=== PATIENT | female | born 1940 | race Caucasian/White ===

== ENCOUNTER 2017-12-28 07:20 | Inpatient (IN) | payer MEDICARE, OTHER ==
[2017-12-28] VITALS (14 sets, daily range): BP systolic 125–166; BP diastolic 66–78
[~2017-12-28] VITALS: Ht 162.6 cm; Wt 62.7 kg
[~2017-12-28 07:20] MED LIST: ADV50250 IH; CETI10CA PO; LISI30TA4 PO; OMEP20CA10 PO; SIMV20TA5 PO; SYN0.112T PO
[2017-12-28 08:26] LABS: INR 0.9 INR; PARTIAL THROMBOPLASTIN TIME 29 SECONDS (22-32); PROTHROMBIN TIME 9.8 SECONDS (9.0-12.0)
[2017-12-28 08:29] LABS: BASOPHILS % (AUTO) 0.2 % (0-1); EOSINOPHILS # (AUTO) 0.1 X10'3 (0-0.9); EOSINOPHILS % (AUTO) 1.5 % (0-6); HEMATOCRIT 39.1 % (35.0-45.0); HEMOGLOBIN 13.4 g/dl (12.0-16.0); LYMPHOCYTES # (AUTO) 1.8 X10'3 (1.1-4.8); LYMPHOCYTES % (AUTO) 29.8 % (21-51); MEAN CORPUSCULAR HEMOGLOBIN 33.7 PG (27.0-31.0); MEAN CORPUSCULAR HGB CONC 34.2 % (33.0-36.5); MEAN CORPUSCULAR VOLUME 98.6 FL (78-98); MEAN PLATELET VOLUME 9.4 FL (7.4-10.4); MONOCYTES # (AUTO) 0.7 X10'3 (0-0.9); MONOCYTES % (AUTO) 11.4 % (2-12); NEUTROPHILS # (AUTO) 3.5 X10'3 (1.8-7.7); NEUTROPHILS % (AUTO) 57.1 % (42-75); PLATELET COUNT 252 X10'3 (140-440); RED BLOOD COUNT 3.96 X10'6 (4.20-5.60); RED CELL DISTRIBUTION WIDTH 13.7 % (11.5-14.5); WHITE BLOOD COUNT 6.1 X10'3 (4.5-11.0)
[2017-12-28 08:34] LABS: ALANINE AMINOTRANSFERASE 15 U/L (12-78); ALBUMIN 3.4 G/DL (3.4-5.0); ALBUMIN/GLOBULIN RATIO 1.1 (1.1-1.5); ALKALINE PHOSPHATASE 113 IU/L (46-116); ANION GAP 4 (8-16); ASPARTATE AMINO TRANSFERASE 15 U/L (10-37); BILIRUBIN,TOTAL 0.5 MG/DL (0.1-1.0); BLOOD UREA NITROGEN 6 MG/DL (7-18); CALCIUM 8.8 MG/DL (8.5-10.1); CHLORIDE 93 MMOL/L (99-107); GLUCOSE 105 MG/DL (70-104); POTASSIUM 4.2 MMOL/L (3.5-5.1); SODIUM 128 MMOL/L (135-145); TOTAL CARBON DIOXIDE 31.2 MMOL/L (24-32); TOTAL PROTEIN 6.4 G/DL (6.4-8.2); eGFR > 90 ML/MIN
[2017-12-28] MEDS ORDERED: SIMV20TA5 PO (08:43)
[2017-12-28] MEDS ORDERED: LEVO75TA PO (08:46)
[2017-12-28] MEDS ORDERED: potassium Cl 20 mEq SR tablet PO PRN ×2 (08:55)
[2017-12-28] MEDS ORDERED: magnesium Cl slow-release 64mg tablet PO PRN (08:55)
[2017-12-28] MEDS ORDERED: potassium Cl 40MEQ/NS 500ml 500 ML IV PRN ×2 (08:55)
[2017-12-28] MEDS ORDERED: mag hydrox/Alum hydrox/simeth 30ml oral suspension PO PRN (08:55)
[2017-12-28] MEDS ORDERED: acetaminophen 325mg tablet PO PRN (08:55)
[2017-12-28] MEDS ORDERED: magnesium 1gm/100ml D5W IVPB 100 ML IV PRN (08:55)
[2017-12-28] MEDS ORDERED: ondansetron/PF 4mg/2ml inj IV PRN (08:55)
[2017-12-28] MEDS ORDERED: magnesium hydroxide 30ml (MOM) UD suspension PO PRN (08:55)
[2017-12-28] MEDS ORDERED: magnesium 4gm in 100ml NS 100 ML IV PRN (08:55)
[2017-12-28] MEDS: levoTHYROXINE 75mcg tablet PO SCH (09:00)
[2017-12-28] MEDS ORDERED: metoprolol tartrate 1mg/ml inj IV PRN (09:00)
[2017-12-28] MEDS ORDERED: nitroGLYCERIN 0.4mg SUBLingual tab SL PRN (09:00)
[2017-12-28] MEDS ORDERED: CAFFEINE CITRATE 60 MG/3 ML injection vial IV PRN (09:00)
[2017-12-28] MEDS ORDERED: regadenoson 0.4mg/5ml syringe IV PRN (09:00)
[2017-12-28] MEDS: normal saline 1000ml 1,000 ML IV SCH (09:10)
[2017-12-28] MEDS ORDERED: albuterol 2.5 MG/3 ML nebule NEB PRN (09:15)
[2017-12-28] MEDS: lisinopril 10 MG tablet PO SCH (10:00)
[2017-12-28] MEDS: pantoprazole 40mg Tablet.DR PO SCH (10:25)
[2017-12-28] MEDS ORDERED: regadenoson 0.4mg/5ml syringe IV ONE (13:05)
[2017-12-28] MEDS ORDERED: CAFFEINE CITRATE 60 MG/3 ML injection vial IV ONE (13:05)
[2017-12-28] MEDS: cetirizine 10mg tablet PO SCH (14:30)
[2017-12-28] MEDS: metoprolol tartrate 12.5mg (1/2 tablet) PO SCH (19:42)
[2017-12-28] MEDS: heparin, porcine 5000 units/ml vial SQ SCH (19:43)
[2017-12-28] MEDS ORDERED: non-formulary drug (Fluticasone/Salmeterol* (Advair 250-50 Diskus*) 1 PUFF) IH SCH (20:00)
[2017-12-28] MEDS ORDERED: HYDROcodone/acetaminophen 5mg/325mg tablet PO PRN (20:00)
[2017-12-28] MEDS ORDERED: temazepam 15mg capsule PO PRN (20:00)
[2017-12-28] MEDS ORDERED: morphine 2 MG/ML inj. syringe IV PRN (20:00)
[2017-12-28] MEDS: budesonide 0.5mg/2ml UD nebule IH SCH (22:10)
[2017-12-29 03:00] VITALS: BP 126/67
[2017-12-29 04:50] LABS: BASOPHILS % (AUTO) 0.4 % (0-1); EOSINOPHILS # (AUTO) 0.1 X10'3 (0-0.9); EOSINOPHILS % (AUTO) 2.1 % (0-6); HEMATOCRIT 39.4 % (35.0-45.0); HEMOGLOBIN 13.4 g/dl (12.0-16.0); LYMPHOCYTES # (AUTO) 1.8 X10'3 (1.1-4.8); LYMPHOCYTES % (AUTO) 29.8 % (21-51); MEAN CORPUSCULAR HEMOGLOBIN 33.4 PG (27.0-31.0); MEAN CORPUSCULAR VOLUME 98.5 FL (78-98); MONOCYTES # (AUTO) 0.5 X10'3 (0-0.9); MONOCYTES % (AUTO) 8.4 % (2-12); NEUTROPHILS # (AUTO) 3.5 X10'3 (1.8-7.7); NEUTROPHILS % (AUTO) 59.3 % (42-75); PLATELET COUNT 251 X10'3 (140-440); RED CELL DISTRIBUTION WIDTH 13.7 % (11.5-14.5)
[2017-12-29 05:11] LABS: ALANINE AMINOTRANSFERASE 16 U/L (12-78); ALBUMIN 3.3 G/DL (3.4-5.0); ALBUMIN/GLOBULIN RATIO 1.1 (1.1-1.5); ALKALINE PHOSPHATASE 102 IU/L (46-116); ANION GAP 3 (8-16); ASPARTATE AMINO TRANSFERASE 16 U/L (10-37); BILIRUBIN,TOTAL 0.7 MG/DL (0.1-1.0); BLOOD UREA NITROGEN 6 MG/DL (7-18); BUN/CREATININE RATIO 9.8 (6.6-38.0); CHLORIDE 96 MMOL/L (99-107); CREATININE 0.61 MG/DL (0.40-0.90); GLUCOSE 92 MG/DL (70-104); MAGNESIUM 1.6 MG/DL (1.5-2.4); POTASSIUM 4.2 MMOL/L (3.5-5.1); SODIUM 132 MMOL/L (135-145); TOTAL PROTEIN 6.2 G/DL (6.4-8.2); eGFR > 90 ML/MIN
[2017-12-29] MEDS: normal saline 1000ml 1,000 ML IV SCH (05:14)
[2017-12-29 06:00] VITALS: BP 143/77
[2017-12-29] MEDS: budesonide 0.5mg/2ml UD nebule IH SCH (07:19)
[2017-12-29] MEDS ORDERED: atorvastatin 10mg tablet PO SCH (08:00)
[2017-12-29] MEDS ORDERED: K and/or MAG REPLACEMENT MC SCH (08:00)
[2017-12-29] MEDS ORDERED: aspirin 81mg tab.chew PO SCH (08:30)
[2017-12-29] MEDS: metoprolol tartrate 12.5mg (1/2 tablet) PO SCH (08:46)
[2017-12-29] MEDS: levoTHYROXINE 75mcg tablet PO SCH (08:47)
[2017-12-29] MEDS: cetirizine 10mg tablet PO SCH (08:47)
[2017-12-29] MEDS: lisinopril 10 MG tablet PO SCH (08:49)
[2017-12-29] MEDS: pantoprazole 40mg Tablet.DR PO SCH (08:49)
[2017-12-29] MEDS: heparin, porcine 5000 units/ml vial SQ SCH (08:50)
[2017-12-29 11:00] VITALS: BP 132/74
[2017-12-29] MEDS ORDERED: ALBU8HFA PO (12:48)
== END 2017-12-29 14:45 | disposition home or self-care (01) | DRG 313 ==
LOC: ER 07:20 → ED HOLD 08:54 → PCU 3S 10:45
PROVIDERS: ADMIT Internal Medicine; ATTEND Internal Medicine
PROC: 4A02XM4 Measurement of Cardiac Total Activity, External Approach (ICD-10-PCS; principal; 2017-12-28)
PROC: 3E033HZ Introduction of Radioactive Substance into Peripheral Vein, Percutaneous Approach (ICD-10-PCS; 2017-12-28)
DX: R07.9 Chest pain, unspecified (principal); J42 Unspecified chronic bronchitis; K21.9 Gastro-esophageal reflux disease without esophagitis; E03.9 Hypothyroidism, unspecified; E78.00 Pure hypercholesterolemia, unspecified; I10 Essential (primary) hypertension; F17.200 Nicotine dependence, unspecified, uncomplicated; F12.90 Cannabis use, unspecified, uncomplicated; Z79.899 Other long term (current) drug therapy; Z82.49 Family history of ischemic heart disease and other diseases of the circulatory system; Z83.3 Family history of diabetes mellitus; Z98.51 Tubal ligation status
CPT/HCPCS: 36415; 71045; 78452; 80053; 83735; 84443; 84484; 85025; 85610; 85730; 87070; 93005; 93017; 93306; 94640; 99285; A6258; A9500; J1644; J2270; J7030; J7626

== ENCOUNTER 2018-06-27 15:43 | Inpatient (IN) | payer MEDICARE, OTHER | END 2018-07-02 13:35 | disposition home or self-care (01) | LOC: ER 15:43 → ED HOLD 18:40 → SUR 3N 06-28 20:20 → PCU 3S 22:00 | DX: A41.9 Sepsis, unspecified organism (principal); J18.9 Pneumonia, unspecified organism; J44.1 Chronic obstructive pulmonary disease with (acute) exacerbation; E87.1 Hypo-osmolality and hyponatremia; J44.0 Chronic obstructive pulmonary disease with (acute) lower respiratory infection; Z72.0 Tobacco use; K21.9 Gastro-esophageal reflux disease without esophagitis ==

== ENCOUNTER 2021-12-23 06:50 | Emergency (ER) | payer MEDICARE, OTHER ==
[~2021-12-23] VITALS: Ht 162.6 cm; Wt 79.1 kg
[~2021-12-23 06:50] MED LIST changes: -ADV50250 IH; +ALBU8HFA PO; -CETI10CA PO; +GLYC10.7 IH; +IPRA3AMP31 NEB; +LEVO75TA PO; +MULT-1085 PO; -OMEP20CA10 PO; +OMEP20CA15 PO; -SIMV20TA5 PO; -SYN0.112T PO; +THIA50TA10 PO; +UMEC62.5 IH
--- NOTE | 2021-12-23 07:06 | NUR ---
PT STATES SHE USES HOME O2 AT NIGHT. HAS RECENTLY STARTED USING IT DURING THE DAY. HAD COVID IN OCTOBER.
[2021-12-23 08:02] VITALS: BP 131/69
== END 2021-12-23 08:30 | disposition home or self-care (01) ==
LOC: ER 06:50
DX: R00.0 Tachycardia, unspecified (principal); F41.1 Generalized anxiety disorder; I10 Essential (primary) hypertension; J44.9 Chronic obstructive pulmonary disease, unspecified; E07.9 Disorder of thyroid, unspecified; F12.10 Cannabis abuse, uncomplicated; Z88.8 Allergy status to other drugs, medicaments and biological substances; Z79.899 Other long term (current) drug therapy
CPT/HCPCS: 71045; 93005; 99284

== ENCOUNTER 2023-09-20 06:14 | Inpatient (IN) | payer MEDICARE, OTHER ==
[~2023-09-20] VITALS: Ht 160 cm; Wt 73.1 kg
[2023-09-20] VITALS (16 sets, daily range): BP systolic 99–185; BP diastolic 50–105; PULSE 84–118; RESP 15–25; TEMP 97.1–97.8; O2SAT 92–97
[~2023-09-20 06:14] MED LIST changes: +BUDE10.2 IH; +CALC500T11 PO; +ESTR42.53 VG; -GLYC10.7 IH; +LISI20TA28 PO; -LISI30TA4 PO; -MULT-1085 PO; +NOR5T PO; -OMEP20CA15 PO; +PRE5T PO; -THIA50TA10 PO; -UMEC62.5 IH
[2023-09-20 07:08] LABS: BILIRUBIN,URINE NEGATIVE (Neg); CLARITY,URINE SLIGHTLY CLOUDY (Clear); COLOR,URINE YELLOW (Yellow); GLUCOSE, URINE NEGATIVE (Neg); KETONES,URINE >=80 mg/dl (Neg); LEUKOCYTE ESTERASE ,URINE NEGATIVE (Neg); NITRITES, URINE NEGATIVE (Neg); OCCULT BLOOD,URINE TRACE-INTACT (Neg); PROTEIN,URINE NEGATIVE (Neg); UROBILINOGEN,URINE 0.2 E.U/dL (0.2-1.0)
[2023-09-20 07:10] LABS: BASOPHILS % (AUTO) 0.1 % (0-1); EOSINOPHILS % (AUTO) 0.3 % (0-6); HEMATOCRIT 38.4 % (35.0-45.0); HEMOGLOBIN 12.8 g/dl (12.0-16.0); LYMPHOCYTES # (AUTO) 1.1 X10'3 (1.1-4.8); LYMPHOCYTES % (AUTO) 8.2 % (21-51); MEAN CORPUSCULAR HEMOGLOBIN 30.9 PG (27.0-31.0); MEAN CORPUSCULAR HGB CONC 33.4 g/dL (33.0-36.5); MEAN CORPUSCULAR VOLUME 92.6 FL (78-98); MEAN PLATELET VOLUME 10.2 FL (7.4-10.4); MONOCYTES # (AUTO) 0.7 X10'3 (0-0.9); MONOCYTES % (AUTO) 5.1 % (2-12); NEUTROPHILS # (AUTO) 11.1 X10'3 (1.8-7.7); NEUTROPHILS % (AUTO) 86.3 % (42-75); PLATELET COUNT 206 X10'3 (140-440); RED BLOOD COUNT 4.14 X10'6 (4.20-5.60); RED CELL DISTRIBUTION WIDTH 13.4 % (11.5-14.5); WHITE BLOOD COUNT 12.9 X10'3 (4.5-11.0)
[2023-09-20 07:15] LABS: UA COLLECTION TYPE STRAIGHT CATH
[2023-09-20] MEDS: lisinopril 10 MG tablet PO ONE (07:15)
[2023-09-20 07:18] LABS: SQUAMOUS EPITHELIAL CELL,UR MODERATE /LPF (FEW)
[2023-09-20 07:19] LABS: BACTERIA,URINE FEW /HPF (Neg); RBC,URINE 0-2 /HPF (0-2); WBC,URINE 0-4 /HPF (0-4)
[2023-09-20 07:22] LABS: TRANSITIONAL EPI CELLS,URINE FEW /HPF
[2023-09-20] MEDS: ipratropium/albuterol 3ml nebule NEB ONE (07:24)
[2023-09-20] MEDS: ondansetron/PF 4mg/2ml inj IV STA (08:01)
[2023-09-20] MEDS: CefTRIAXone/D5W-Rocephin 1gm 50 ML IV ONE (08:48)
[2023-09-20] MEDS: methylPREDNISolone sod succ 125mg/2ml vial IV ONE ×2 (08:50→09:50)
[2023-09-20] MEDS: metoprolol tartrate 50mg tablet PO ONE (08:54)
[2023-09-20] MEDS ORDERED: acetaminophen 325mg tablet PO PRN (09:00)
[2023-09-20] MEDS ORDERED: magnesium 4gm in 100ml NS 100 ML IV PRN (09:00)
[2023-09-20] MEDS ORDERED: magnesium hydroxide 30ml (MOM) UD suspension PO PRN (09:00)
[2023-09-20] MEDS ORDERED: potassium Cl 40MEQ/1/2NS 520ml 520 ML IV PRN (09:00)
[2023-09-20] MEDS ORDERED: potassium Cl 20 mEq SR tablet PO PRN ×2 (09:00)
[2023-09-20 09:36] LABS: ALBUMIN 3.2 G/DL (3.4-5.0); ANION GAP 7 (8-16); BLOOD UREA NITROGEN 5 MG/DL (7-18); BUN/CREATININE RATIO 8.5 (10.0-20.0); CALCIUM 8.7 MG/DL (8.5-10.1); CHLORIDE 84 MMOL/L (99-107); CREATININE 0.59 MG/DL (0.40-0.90); GLUCOSE 100 MG/DL (70-104); POTASSIUM 4.2 MMOL/L (3.5-5.1); SODIUM 122 MMOL/L (135-145); eCRCL 62 ML/MIN; eGFR > 90 ML/MIN
[2023-09-20] MEDS ORDERED: albuterol 2.5 MG/3 ML nebule NEB PRN (09:50)
[2023-09-20 09:59] LABS: HEMOGLOBIN A1C 5.4 % (4.5-6.2)
[2023-09-20] MEDS: lisinopril 20mg tablet PO SCH (10:00)
[2023-09-20] MEDS: azithromycin 250mg tablet PO SCH (10:01)
[2023-09-20] MEDS: budesonide 0.5mg/2ml UD nebule IH SCH (10:30)
[2023-09-20] MEDS: ipratropium/albuterol 3ml nebule NEB SCH (10:30)
[2023-09-20 11:16] LABS: D-DIMER 2.86 MG/L FEU (0-0.50)
[2023-09-20 11:36] LABS: ALANINE AMINOTRANSFERASE 19 U/L (12-78); ALBUMIN 3.3 G/DL (3.4-5.0); ALBUMIN/GLOBULIN RATIO 0.9 (1.1-1.5); ALKALINE PHOSPHATASE 102 IU/L (46-116); ANION GAP 8 (8-16); ASPARTATE AMINO TRANSFERASE 24 U/L (10-37); BILIRUBIN,TOTAL 0.6 MG/DL (0.1-1.0); BLOOD UREA NITROGEN 5 MG/DL (7-18); BUN/CREATININE RATIO 9.6 (10.0-20.0); CALCIUM 8.7 MG/DL (8.5-10.1); CHLORIDE 83 MMOL/L (99-107); CREATININE 0.52 MG/DL (0.40-0.90); GLUCOSE 102 MG/DL (70-104); POTASSIUM 4.7 MMOL/L (3.5-5.1); TOTAL CARBON DIOXIDE 28.8 MMOL/L (24-32); TOTAL PROTEIN 6.9 G/DL (6.4-8.2); eCRCL 70 ML/MIN; eGFR > 90 ML/MIN
[2023-09-20 11:39] LABS: SODIUM 120 MMOL/L (135-145)
[2023-09-20] MEDS ORDERED: iohexol 350MG/ML 100ml bottle IV ONE (12:40)
[2023-09-20] MEDS: furosemide 10 MG/1 ML 10ml inj IV ONE (13:18)
[2023-09-20] MEDS: mag hydrox/Alum hydrox/simeth 30ml oral suspension PO PRN (19:17)
[2023-09-20] MEDS: lactobacillus rhamnosus 10,000 MMU CELLS/CAPSULE PO SCH (19:19)
[2023-09-20] MEDS: heparin, porcine 5000 units/ml vial SQ SCH (19:19)
[2023-09-20] MEDS: docusate sod 100mg capsule PO SCH (19:20)
[2023-09-20] MEDS: ondansetron/PF 4mg/2ml inj IV PRN (19:42)
[2023-09-20] MEDS: K and/or MAG REPLACEMENT MC SCH (20:00)
[2023-09-21] VITALS (20 sets, daily range): BP systolic 99–118; BP diastolic 42–63; PULSE 83–121; RESP 11–27; TEMP 96.8–98.6; O2SAT 3–99
[2023-09-21 06:38] LABS: BASOPHILS % (AUTO) 0.1 % (0-1); EOSINOPHILS % (AUTO) 0 % (0-6); HEMATOCRIT 35.6 % (35.0-45.0); LYMPHOCYTES # (AUTO) 1.2 X10'3 (1.1-4.8); LYMPHOCYTES % (AUTO) 20.1 % (21-51); MEAN CORPUSCULAR HEMOGLOBIN 30.8 PG (27.0-31.0); MEAN CORPUSCULAR HGB CONC 33.7 g/dL (33.0-36.5); MEAN CORPUSCULAR VOLUME 91.6 FL (78-98); MEAN PLATELET VOLUME 9.8 FL (7.4-10.4); MONOCYTES # (AUTO) 0.7 X10'3 (0-0.9); MONOCYTES % (AUTO) 11.8 % (2-12); NEUTROPHILS # (AUTO) 4.1 X10'3 (1.8-7.7); PLATELET COUNT 214 X10'3 (140-440); RED BLOOD COUNT 3.88 X10'6 (4.20-5.60); RED CELL DISTRIBUTION WIDTH 13.6 % (11.5-14.5); WHITE BLOOD COUNT 6.1 X10'3 (4.5-11.0)
[2023-09-21 06:55] LABS: ALANINE AMINOTRANSFERASE 16 U/L (12-78); ALBUMIN 2.8 G/DL (3.4-5.0); ALBUMIN/GLOBULIN RATIO 0.9 (1.1-1.5); ALKALINE PHOSPHATASE 77 IU/L (46-116); ANION GAP 9 (8-16); ASPARTATE AMINO TRANSFERASE 23 U/L (10-37); BILIRUBIN,TOTAL 0.3 MG/DL (0.1-1.0); BLOOD UREA NITROGEN 16 MG/DL (7-18); BUN/CREATININE RATIO 15.4 (10.0-20.0); CALCIUM 8.3 MG/DL (8.5-10.1); CHLORIDE 82 MMOL/L (99-107); CHOL/HDL RATIO 3.1 (0.00-4.99); CHOLESTEROL 187 MG/DL (0-200); CREATININE 1.04 MG/DL (0.40-0.90); GLUCOSE 91 MG/DL (70-104); HDL CHOLESTEROL 61 MG/DL (35-60); LDL CHOLESTEROL 96 MG/DL (50-100); MAGNESIUM 1.3 MG/DL (1.5-2.4); POTASSIUM 4.1 MMOL/L (3.5-5.1); SODIUM 121 MMOL/L (135-145); TOTAL CARBON DIOXIDE 30.3 MMOL/L (24-32); TRIGLYCERIDES 66 MG/DL (20-135); eCRCL 35 ML/MIN; eGFR 51 ML/MIN
[2023-09-21] MEDS: levoTHYROXINE 75mcg tablet PO SCH (07:32)
[2023-09-21] MEDS ORDERED: normal saline 1000ml 1,000 ML IV SCH (08:20)
[2023-09-21] MEDS: predniSONE 20 mg tablet PO SCH (08:50)
[2023-09-21] MEDS: pantoprazole 40mg Tablet.DR PO SCH (08:51)
[2023-09-21] MEDS: CefTRIAXone/D5W-Rocephin 1gm 50 ML IV SCH (08:52)
[2023-09-21] MEDS: levalbuterol 0.63mg/3ml nebule IH SCH (09:00)
[2023-09-21] MEDS: amLODIPine 5mg tablet PO ONE (09:11)
[2023-09-21] MEDS: hydrALAZINE 20mg/ml inj. IV ONE (09:11)
[2023-09-21] MEDS: magnesium Cl slow-release 64mg tablet PO PRN (09:19)
[2023-09-21] MEDS: loratadine 10mg tablet PO SCH (09:19)
[2023-09-21] MEDS: furosemide 20 MG/2 ML vial IV SCH (09:20)
[2023-09-21 10:03] LABS: PRO BRAIN NATRIURETIC PEPTIDE 706 PG/ML (0-450)
[2023-09-21] MEDS: sodium chloride 1gm tablet PO SCH (13:41)
[2023-09-21] MEDS: magnesium 2GM in 50ml NS 50 ML IV PRN (13:42)
[2023-09-21] MEDS: Melatonin 3mg tablet PO SCH (23:46)
[2023-09-22] VITALS (15 sets, daily range): BP systolic 100–123; BP diastolic 58–67; PULSE 76–112; RESP 16–20; TEMP 97.2–97.9; O2SAT 85–98
[2023-09-22 07:22] LABS: BASOPHILS % (AUTO) 0.2 % (0-1); EOSINOPHILS % (AUTO) 0.2 % (0-6); HEMATOCRIT 35.9 % (35.0-45.0); HEMOGLOBIN 11.9 g/dl (12.0-16.0); LYMPHOCYTES # (AUTO) 1.3 X10'3 (1.1-4.8); LYMPHOCYTES % (AUTO) 21.6 % (21-51); MEAN CORPUSCULAR HEMOGLOBIN 30.5 PG (27.0-31.0); MEAN CORPUSCULAR HGB CONC 33.1 g/dL (33.0-36.5); MEAN CORPUSCULAR VOLUME 92.1 FL (78-98); MEAN PLATELET VOLUME 10.1 FL (7.4-10.4); MONOCYTES # (AUTO) 0.7 X10'3 (0-0.9); MONOCYTES % (AUTO) 12.4 % (2-12); NEUTROPHILS # (AUTO) 3.8 X10'3 (1.8-7.7); NEUTROPHILS % (AUTO) 65.6 % (42-75); PLATELET COUNT 210 X10'3 (140-440); RED CELL DISTRIBUTION WIDTH 13.6 % (11.5-14.5); WHITE BLOOD COUNT 5.8 X10'3 (4.5-11.0)
[2023-09-22 07:51] LABS: ALANINE AMINOTRANSFERASE 14 U/L (12-78); ALBUMIN 2.8 G/DL (3.4-5.0); ALBUMIN/GLOBULIN RATIO 0.9 (1.1-1.5); ALKALINE PHOSPHATASE 67 IU/L (46-116); ANION GAP 0 (8-16); ASPARTATE AMINO TRANSFERASE 17 U/L (10-37); BILIRUBIN,TOTAL 0.4 MG/DL (0.1-1.0); BLOOD UREA NITROGEN 17 MG/DL (7-18); BUN/CREATININE RATIO 23.3 (10.0-20.0); CALCIUM 8.7 MG/DL (8.5-10.1); CHLORIDE 88 MMOL/L (99-107); CREATININE 0.73 MG/DL (0.40-0.90); GLUCOSE 89 MG/DL (70-104); MAGNESIUM 2.1 MG/DL (1.5-2.4); PHOSPHORUS 2.7 MG/DL (2.3-4.5); POTASSIUM 3.7 MMOL/L (3.5-5.1); SODIUM 126 MMOL/L (135-145); THYROID STIMULATING HORMONE 1.44 ulU/ml (0.34-4.50); TOTAL CARBON DIOXIDE 38.3 MMOL/L (24-32); eCRCL 50 ML/MIN; eGFR 77 ML/MIN
[2023-09-22 14:39] LABS: SODIUM,URINE RANDOM 20 MEQ/L
[2023-09-22 15:03] LABS: OSMOLALITY UA 182 MOSM/K (50-1400)
[2023-09-22] MEDS: sodium chloride 1gm tablet PO SCH (16:13)
[2023-09-23 06:39] VITALS: BP 143/84; PULSE 100; RESP 16; TEMP 97.7; O2SAT 98
[2023-09-23 08:28] LABS: BASOPHILS % (AUTO) 0.2 % (0-1); EOSINOPHILS % (AUTO) 0.5 % (0-6); HEMATOCRIT 37.5 % (35.0-45.0); HEMOGLOBIN 12.3 g/dl (12.0-16.0); LYMPHOCYTES # (AUTO) 1.8 X10'3 (1.1-4.8); LYMPHOCYTES % (AUTO) 28.7 % (21-51); MEAN CORPUSCULAR HEMOGLOBIN 30.6 PG (27.0-31.0); MEAN CORPUSCULAR HGB CONC 32.8 g/dL (33.0-36.5); MEAN CORPUSCULAR VOLUME 93.3 FL (78-98); MEAN PLATELET VOLUME 9.9 FL (7.4-10.4); MONOCYTES # (AUTO) 0.8 X10'3 (0-0.9); MONOCYTES % (AUTO) 13.2 % (2-12); NEUTROPHILS # (AUTO) 3.5 X10'3 (1.8-7.7); NEUTROPHILS % (AUTO) 57.4 % (42-75); PLATELET COUNT 210 X10'3 (140-440); RED BLOOD COUNT 4.02 X10'6 (4.20-5.60); RED CELL DISTRIBUTION WIDTH 13.9 % (11.5-14.5); WHITE BLOOD COUNT 6.2 X10'3 (4.5-11.0)
[2023-09-23 08:31] VITALS: PULSE 81; RESP 18; O2SAT 93
[2023-09-23 08:43] VITALS: PULSE 82; RESP 18
[2023-09-23 08:49] LABS: ALANINE AMINOTRANSFERASE 13 U/L (12-78); ALBUMIN 2.9 G/DL (3.4-5.0); ALBUMIN/GLOBULIN RATIO 0.9 (1.1-1.5); ALKALINE PHOSPHATASE 66 IU/L (46-116); ANION GAP 0 (8-16); ASPARTATE AMINO TRANSFERASE 13 U/L (10-37); BILIRUBIN,TOTAL 0.4 MG/DL (0.1-1.0); BLOOD UREA NITROGEN 15 MG/DL (7-18); CALCIUM 8.7 MG/DL (8.5-10.1); CHLORIDE 92 MMOL/L (99-107); GLUCOSE 82 MG/DL (70-104); PHOSPHORUS 2.3 MG/DL (2.3-4.5); SODIUM 132 MMOL/L (135-145); TOTAL CARBON DIOXIDE 39.9 MMOL/L (24-32); TOTAL PROTEIN 6.1 G/DL (6.4-8.2); eCRCL 61 ML/MIN; eGFR > 90 ML/MIN
[2023-09-23 10:00] VITALS: BP 113/43; PULSE 105; RESP 18; TEMP 97; O2SAT 97
== END 2023-09-23 14:15 | DRG 643 ==
LOC: ER 06:14 → ED HOLD 09:01 → ORTHO 4S 14:01
PROVIDERS: ADMIT Family Medicine; ATTEND Family Medicine
PROC: B32T1ZZ Computerized Tomography (CT Scan) of Left Pulmonary Artery using Low Osmolar Contrast (ICD-10-PCS; principal; 2023-09-20)
PROC: B3201ZZ Computerized Tomography (CT Scan) of Thoracic Aorta using Low Osmolar Contrast (ICD-10-PCS; 2023-09-20)
PROC: B32S1ZZ Computerized Tomography (CT Scan) of Right Pulmonary Artery using Low Osmolar Contrast (ICD-10-PCS; 2023-09-20)
DX: E22.2 Syndrome of inappropriate secretion of antidiuretic hormone (principal); J96.21 Acute and chronic respiratory failure with hypoxia; J44.1 Chronic obstructive pulmonary disease with (acute) exacerbation; I10 Essential (primary) hypertension; E87.8 Other disorders of electrolyte and fluid balance, not elsewhere classified; D72.829 Elevated white blood cell count, unspecified; Z87.891 Personal history of nicotine dependence; Z98.51 Tubal ligation status; Z79.899 Other long term (current) drug therapy; Z88.8 Allergy status to other drugs, medicaments and biological substances; D35.00 Benign neoplasm of unspecified adrenal gland; R30.0 Dysuria
CPT/HCPCS: 36415; 71045; 71275; 80048; 80053; 80061; 81001; 83036; 83605; 83735; 83880; 83930; 83935; 84100; 84145; 84300; 84443; 85025; 85379; 87040; 87081; 92508; 92616; 93005; 93306; 94640; 94760; 97161; 97530; 97535; 99291; A4353; A6250; G0378; J0696; J1644; J1940; J2405; J2930; J3475; J3490; J7040; J7512; J7614; Q9967

== ENCOUNTER → 2023-10-01 | Outpatient (CLI) | payer MEDICARE, OTHER ==
[~2023-10-01] MED LIST changes: -ALBU8HFA PO; -ESTR42.53 VG; -NOR5T PO; -PRE5T PO
[2023-10-01 11:54] LABS: ALBUMIN 3.1 G/DL (3.4-5.0); ANION GAP 4 (8-16); BLOOD UREA NITROGEN 8 MG/DL (7-18); BUN/CREATININE RATIO 15.4 (10.0-20.0); CALCIUM 8.7 MG/DL (8.5-10.1); CHLORIDE 91 MMOL/L (99-107); CREATININE 0.52 MG/DL (0.40-0.90); GLUCOSE 108 MG/DL (70-104); POTASSIUM 4.2 MMOL/L (3.5-5.1); SODIUM 128 MMOL/L (135-145); TOTAL CARBON DIOXIDE 32.6 MMOL/L (24-32); eGFR > 90 ML/MIN
== END | disposition home or self-care (01) ==
LOC: LAB 11:26
PROVIDERS: ATTEND Family Medicine
DX: J44.1 Chronic obstructive pulmonary disease with (acute) exacerbation (principal)
CPT/HCPCS: 36415; 80048

== ENCOUNTER 2023-10-10 15:50 | Inpatient (IN) | payer MEDICARE, OTHER ==
[~2023-10-10] VITALS: Ht 160 cm; Wt 64.0 kg
[2023-10-10 16:31] LABS: BASOPHILS % (AUTO) 0.3 % (0-1); EOSINOPHILS # (AUTO) 0.1 X10'3 (0-0.9); EOSINOPHILS % (AUTO) 1.2 % (0-6); HEMATOCRIT 36.1 % (35.0-45.0); LYMPHOCYTES # (AUTO) 1.8 X10'3 (1.1-4.8); MEAN CORPUSCULAR HEMOGLOBIN 30.6 PG (27.0-31.0); MEAN CORPUSCULAR HGB CONC 33.1 g/dL (33.0-36.5); MEAN CORPUSCULAR VOLUME 92.5 FL (78-98); MEAN PLATELET VOLUME 10.1 FL (7.4-10.4); MONOCYTES # (AUTO) 0.6 X10'3 (0-0.9); NEUTROPHILS % (AUTO) 61.5 % (42-75); PLATELET COUNT 210 X10'3 (140-440); RED BLOOD COUNT 3.91 X10'6 (4.20-5.60); RED CELL DISTRIBUTION WIDTH 13.6 % (11.5-14.5); WHITE BLOOD COUNT 6.5 X10'3 (4.5-11.0)
[2023-10-10 16:43] LABS: ALANINE AMINOTRANSFERASE 17 U/L (12-78); ALBUMIN 3.3 G/DL (3.4-5.0); ALBUMIN/GLOBULIN RATIO 1.1 (1.1-1.5); ALKALINE PHOSPHATASE 89 IU/L (46-116); ANION GAP 4 (8-16); ASPARTATE AMINO TRANSFERASE 24 U/L (10-37); BILIRUBIN,TOTAL 0.3 MG/DL (0.1-1.0); CALCIUM 8.8 MG/DL (8.5-10.1); CHLORIDE 83 MMOL/L (99-107); CREATININE 0.43 MG/DL (0.40-0.90); GLUCOSE 99 MG/DL (70-104); POTASSIUM 4.4 MMOL/L (3.5-5.1); TOTAL CARBON DIOXIDE 31.9 MMOL/L (24-32); TOTAL PROTEIN 6.4 G/DL (6.4-8.2); eGFR > 90 ML/MIN
[2023-10-10 16:49] LABS: BLOOD UREA NITROGEN 7 MG/DL (7-18); BUN/CREATININE RATIO 16.3 (10.0-20.0)
[2023-10-10 16:51] LABS: SODIUM 119 MMOL/L (135-145)
[2023-10-10 16:54] LABS: ETHANOL < 10 MG/DL (<10)
[2023-10-10 17:00] LABS: OSMOLALITY 250 MOSM/K (280-300)
[2023-10-10] MEDS ORDERED: acetaminophen 325mg tablet PO PRN (17:55)
[2023-10-10] MEDS ORDERED: potassium Cl 40MEQ/1/2NS 520ml 520 ML IV PRN (17:55)
[2023-10-10] MEDS ORDERED: magnesium 4gm in 100ml NS 100 ML IV PRN (17:55)
[2023-10-10] MEDS ORDERED: potassium Cl 20 mEq SR tablet PO PRN ×2 (17:55)
[2023-10-10] MEDS ORDERED: magnesium 2GM in 50ml NS 50 ML IV PRN (17:55)
[2023-10-10 19:55] VITALS: PULSE 80; RESP 24; O2SAT 98
[2023-10-10] MEDS: ipratropium/albuterol 3ml nebule NEB PRN (19:55)
[2023-10-10] MEDS: K and/or MAG REPLACEMENT MC SCH (20:00)
[2023-10-10 20:03] VITALS: PULSE 96; RESP 24
[2023-10-10] MEDS ORDERED: GABA-530 PO (20:18)
[2023-10-10] MEDS ORDERED: ALB0.5UD NEB (20:18)
[2023-10-10] MEDS ORDERED: MELA5TAB12 PO (20:18)
[2023-10-10] MEDS ORDERED: ACET-2119 PO (20:18)
[2023-10-10] MEDS ORDERED: PANT20TA18 PO (20:18)
[2023-10-10] MEDS ORDERED: NAPR220T67 PO (20:18)
[2023-10-10] MEDS ORDERED: LIDO1ADH19 TOP (20:18)
[2023-10-10] MEDS ORDERED: ADV50250 INH (20:18)
[2023-10-10] MEDS ORDERED: CETI10CA PO (20:18)
[2023-10-10] MEDS ORDERED: LORA10CA PO (20:18)
[2023-10-10] MEDS ORDERED: LACT1CAP65 PO (20:18)
[2023-10-10] MEDS ORDERED: LORA-268 PO (20:22)
[2023-10-10] MEDS: normal saline 1000ml 1,000 ML IV SCH (21:00)
[2023-10-10] MEDS: normal saline 500ml IV soln 500 ML IV ONE (21:00)
[2023-10-10 23:00] VITALS: BP 128/78; PULSE 99; RESP 16; TEMP 97.6; O2SAT 99
[2023-10-11] VITALS (14 sets, daily range): BP systolic 122–149; BP diastolic 63–76; PULSE 78–96; RESP 14–18; TEMP 97.6–98.4; O2SAT 97–100
[2023-10-11] MEDS: temazepam 15mg capsule PO PRN (01:18)
[2023-10-11 06:30] LABS: BILIRUBIN,URINE NEGATIVE (Neg); CLARITY,URINE CLEAR (Clear); GLUCOSE, URINE NEGATIVE (Neg); KETONES,URINE 15 mg/dl (Neg); LEUKOCYTE ESTERASE ,URINE MODERATE (Neg); NITRITES, URINE NEGATIVE (Neg); OCCULT BLOOD,URINE NEGATIVE (Neg); PROTEIN,URINE NEGATIVE (Neg); UROBILINOGEN,URINE 0.2 E.U/dL (0.2-1.0)
[2023-10-11 06:34] LABS: COLOR,URINE STRAW (Yellow); UA COLLECTION TYPE CLN CATCH MIDSTREAM
[2023-10-11 06:36] LABS: BACTERIA,URINE FEW /HPF (Neg); MUCUS STRANDS NONE SEEN /LPF (Neg); RBC,URINE NONE SEEN /HPF (0-2); SQUAMOUS EPITHELIAL CELL,UR FEW /LPF (FEW)
[2023-10-11 09:05] LABS: BASOPHILS % (AUTO) 0.9 % (0-1); EOSINOPHILS % (AUTO) 1.2 % (0-6); HEMATOCRIT 35.6 % (35.0-45.0); HEMOGLOBIN 11.6 g/dl (12.0-16.0); LYMPHOCYTES # (AUTO) 1.1 X10'3 (1.1-4.8); LYMPHOCYTES % (AUTO) 28.5 % (21-51); MEAN CORPUSCULAR HEMOGLOBIN 30.3 PG (27.0-31.0); MEAN CORPUSCULAR HGB CONC 32.4 g/dL (33.0-36.5); MEAN CORPUSCULAR VOLUME 93.5 FL (78-98); MEAN PLATELET VOLUME 9.8 FL (7.4-10.4); MONOCYTES # (AUTO) 0.4 X10'3 (0-0.9); MONOCYTES % (AUTO) 9.1 % (2-12); NEUTROPHILS # (AUTO) 2.4 X10'3 (1.8-7.7); NEUTROPHILS % (AUTO) 60.3 % (42-75); PLATELET COUNT 186 X10'3 (140-440); RED BLOOD COUNT 3.81 X10'6 (4.20-5.60); RED CELL DISTRIBUTION WIDTH 13.8 % (11.5-14.5)
[2023-10-11 09:13] LABS: ALBUMIN 2.9 G/DL (3.4-5.0); ANION GAP 0 (8-16); BLOOD UREA NITROGEN 3 MG/DL (7-18); BUN/CREATININE RATIO 7.9 (10.0-20.0); CALCIUM 8.4 MG/DL (8.5-10.1); CHLORIDE 89 MMOL/L (99-107); CREATININE 0.38 MG/DL (0.40-0.90); GLUCOSE 123 MG/DL (70-104); MAGNESIUM 1.3 MG/DL (1.5-2.4); SODIUM 122 MMOL/L (135-145); TOTAL CARBON DIOXIDE 33.3 MMOL/L (24-32); eCRCL 96 ML/MIN; eGFR > 90 ML/MIN
[2023-10-11] MEDS ORDERED: FLUT16SP10 (10:04)
[2023-10-11] MEDS: magnesium Cl slow-release 64mg tablet PO PRN (11:23)
[2023-10-11] MEDS: levoTHYROXINE 75mcg tablet PO SCH (11:24)
[2023-10-11] MEDS ORDERED: ALBUTEROL SULFATE NEB SCH (12:00)
[2023-10-11] MEDS: albuterol 2.5 MG/3 ML nebule NEB ONE (13:00)
[2023-10-11] MEDS: budesonide 0.5mg/2ml UD nebule IH ONE (13:06)
[2023-10-11 13:33] LABS: THYROID STIMULATING HORMONE 6.28 ulU/ml (0.34-4.50)
[2023-10-11] MEDS: fluticasone nasal spray 16GM bottle NS SCH (14:25)
[2023-10-11] MEDS ORDERED: SALMETEROL INH SCH (20:00)
[2023-10-11] MEDS ORDERED: FLUTICASONE INH SCH (20:00)
[2023-10-11] MEDS: ibuprofen 200mg tablet PO PRN (20:14)
[2023-10-11] MEDS: Melatonin 3mg tablet PO SCH (20:14)
[2023-10-11] MEDS: budesonide 0.5mg/2ml UD nebule IH SCH (20:24)
[2023-10-11] MEDS: albuterol 2.5 MG/3 ML nebule NEB SCH (20:24)
[2023-10-11] MEDS: gabapentin 100mg capsule PO PRN (20:40)
[2023-10-11] MEDS: lactobacillus rhamnosus 10,000 MMU CELLS/CAPSULE PO SCH (20:47)
[2023-10-11] MEDS ORDERED: CefTRIAXone/D5W-Rocephin 1gm 50 ML IV SCH (22:25)
[2023-10-12] VITALS (15 sets, daily range): BP systolic 109–132; BP diastolic 57–75; PULSE 71–102; RESP 16–18; TEMP 97.4–98; O2SAT 89–100
[2023-10-12 03:14] LABS: EOSINOPHILS # (AUTO) 0.1 X10'3 (0-0.9); HEMOGLOBIN 11.4 g/dl (12.0-16.0); LYMPHOCYTES # (AUTO) 1.3 X10'3 (1.1-4.8); RED BLOOD COUNT 3.74 X10'6 (4.20-5.60); WHITE BLOOD COUNT 3.7 X10'3 (4.5-11.0)
[2023-10-12 03:16] LABS: BASOPHILS % (AUTO) 0.5 % (0-1); EOSINOPHILS % (AUTO) 2.2 % (0-6); HEMATOCRIT 34.3 % (35.0-45.0); LYMPHOCYTES % (AUTO) 35.9 % (21-51); MEAN CORPUSCULAR HEMOGLOBIN 30.5 PG (27.0-31.0); MEAN CORPUSCULAR HGB CONC 33.3 g/dL (33.0-36.5); MEAN CORPUSCULAR VOLUME 91.9 FL (78-98); MEAN PLATELET VOLUME 9.9 FL (7.4-10.4); MONOCYTES # (AUTO) 0.3 X10'3 (0-0.9); MONOCYTES % (AUTO) 9.4 % (2-12); NEUTROPHILS # (AUTO) 1.9 X10'3 (1.8-7.7); PLATELET COUNT 189 X10'3 (140-440); RED CELL DISTRIBUTION WIDTH 13.9 % (11.5-14.5)
[2023-10-12 03:22] LABS: ALBUMIN 2.8 G/DL (3.4-5.0); ANION GAP 3 (8-16); BLOOD UREA NITROGEN 4 MG/DL (7-18); BUN/CREATININE RATIO 10.3 (10.0-20.0); CALCIUM 8.6 MG/DL (8.5-10.1); CHLORIDE 90 MMOL/L (99-107); CREATININE 0.39 MG/DL (0.40-0.90); GLUCOSE 96 MG/DL (70-104); MAGNESIUM 1.3 MG/DL (1.5-2.4); POTASSIUM 4.4 MMOL/L (3.5-5.1); SODIUM 123 MMOL/L (135-145); TOTAL CARBON DIOXIDE 30.5 MMOL/L (24-32); eCRCL 94 ML/MIN; eGFR > 90 ML/MIN
[2023-10-12] MEDS: fluticasone nasal spray 16GM bottle NS ONE (04:14)
[2023-10-12] MEDS: cetirizine 10mg tablet PO SCH (07:22)
[2023-10-12] MEDS: loratadine 10mg tablet PO SCH (07:22)
[2023-10-12] MEDS: calcium carbonate 500mg chew tablet PO PRN (07:24)
[2023-10-12] MEDS: CefTRIAXone/D5W-Rocephin 1gm 50 ML IV SCH (07:30)
[2023-10-12] MEDS: pantoprazole 40mg Tablet.DR PO SCH (08:00)
[2023-10-12] MEDS: [UNRECOGNIZED DRUG - OTHER] TOP SCH (08:00)
[2023-10-12] MEDS: ondansetron/PF 4mg/2ml inj IV PRN (08:59)
[2023-10-12] MEDS: TOLVAPTAN 30 MG TABLET PO ONE (15:33)
[2023-10-12] MEDS: lactose-reduced food (Ensure Enlive) - 237ml bottle PO SCH (17:55)
[2023-10-13] VITALS (7 sets, daily range): BP systolic 104–118; BP diastolic 62–69; PULSE 72–104; RESP 15–20; TEMP 97.3–98; O2SAT 97–99
[2023-10-13 06:35] LABS: BASOPHILS % (AUTO) 0.4 % (0-1); EOSINOPHILS # (AUTO) 0.1 X10'3 (0-0.9); EOSINOPHILS % (AUTO) 2.5 % (0-6); HEMATOCRIT 36.5 % (35.0-45.0); HEMOGLOBIN 11.9 g/dl (12.0-16.0); LYMPHOCYTES # (AUTO) 0.8 X10'3 (1.1-4.8); LYMPHOCYTES % (AUTO) 20.3 % (21-51); MEAN CORPUSCULAR HEMOGLOBIN 30.3 PG (27.0-31.0); MEAN CORPUSCULAR HGB CONC 32.6 g/dL (33.0-36.5); MEAN CORPUSCULAR VOLUME 93.1 FL (78-98); MEAN PLATELET VOLUME 9.7 FL (7.4-10.4); MONOCYTES # (AUTO) 0.4 X10'3 (0-0.9); MONOCYTES % (AUTO) 9.8 % (2-12); NEUTROPHILS # (AUTO) 2.8 X10'3 (1.8-7.7); PLATELET COUNT 200 X10'3 (140-440); RED BLOOD COUNT 3.92 X10'6 (4.20-5.60); RED CELL DISTRIBUTION WIDTH 14.1 % (11.5-14.5); WHITE BLOOD COUNT 4.1 X10'3 (4.5-11.0)
[2023-10-13 06:44] LABS: ALBUMIN 2.8 G/DL (3.4-5.0); ANION GAP 3 (8-16); BLOOD UREA NITROGEN 5 MG/DL (7-18); CALCIUM 9.1 MG/DL (8.5-10.1); CHLORIDE 99 MMOL/L (99-107); GLUCOSE 98 MG/DL (70-104); MAGNESIUM 1.6 MG/DL (1.5-2.4); POTASSIUM 4.4 MMOL/L (3.5-5.1); SODIUM 133 MMOL/L (135-145); TOTAL CARBON DIOXIDE 31.5 MMOL/L (24-32); eCRCL 73 ML/MIN; eGFR > 90 ML/MIN
[2023-10-13] MEDS ORDERED: diatr meglu/diatrizoate 30ml oral sol.-(3 dose) bottle PO SCH (09:00)
[2023-10-13] MEDS ORDERED: bisacodyl 10mg suppository rectal RC PRN (10:20)
== END 2023-10-13 13:31 | DRG 644 ==
LOC: ER 15:51 → ED HOLD 17:59 → ORTHO 4S 23:00
PROVIDERS: ADMIT Internal Medicine; ATTEND Internal Medicine
DX: E22.2 Syndrome of inappropriate secretion of antidiuretic hormone (principal); J44.1 Chronic obstructive pulmonary disease with (acute) exacerbation; N39.0 Urinary tract infection, site not specified; I10 Essential (primary) hypertension; F41.9 Anxiety disorder, unspecified; E03.9 Hypothyroidism, unspecified; Z88.8 Allergy status to other drugs, medicaments and biological substances; Z98.51 Tubal ligation status; Z87.891 Personal history of nicotine dependence; Z68.25 Body mass index [BMI] 25.0-25.9, adult; Z91.199 Patient's noncompliance with other medical treatment and regimen due to unspecified reason; Z87.01 Personal history of pneumonia (recurrent); Z79.899 Other long term (current) drug therapy
CPT/HCPCS: 36415; 71045; 80048; 80053; 80320; 81001; 82570; 83735; 83930; 83935; 84295; 84300; 84443; 85025; 87040; 87081; 94640; 94760; 97161; 97530; 99285; G0378; J0696; J2405; J7030; J7040